=== PATIENT | male | born 1990 | race African-American/Black ===

== ENCOUNTER → 2022-06-03 | Outpatient (REF) | payer SELFPAY ==
[2022-06-03 10:42] LABS: SEMEN APPEARANCE OPAQUE (OPAQUE); SEMEN VISCOSITY LIQUID (LIQUID); SEMEN VOLUME 1.5 ml (2.0-5.0); SPERM CONCENTRATION 54.7 M/ml (>=15.0); WBC CONCENTRATION <=1 M/ml (<=1 M/ml)
== END ==
LOC: M LAB REF 10:10
PROVIDERS: ATTEND Family Medicine
DX: N46.9 Male infertility, unspecified (principal)

== ENCOUNTER 2023-01-28 16:21 | Emergency (ER) | payer OTHER, SELFPAY ==
[~2023-01-28] VITALS: Ht 182.9 cm; Wt 124.4 kg
[2023-01-28] MEDS ORDERED: MORPHINE 4 MG/ML 1ML VIAL IV ONE (17:10)
[2023-01-28] MEDS ORDERED: ONDANSETRON 4MG 2ML VIAL IV ONE (17:10)
[2023-01-28 17:11] LABS: BASO # 0.1 10^3/uL (0.0-0.2); BASO % 1.3 % (0.0-1.0); EOS # 0.2 10^3/uL (0.0-0.5); EOS % 4.9 % (0.0-3.0); HEMOGLOBIN 13.1 g/dl (13.5-17.5); LYMPH # 1.7 10^3/uL (1.5-5.0); LYMPH % 43.8 % (24.0-44.0); MEAN CORPUSCULAR HGB CONC 32.8 g/dl (32.0-36.5); MEAN CORPUSCULAR VOLUME 91.7 fl (80.0-96.0); MONO # 0.3 10^3/uL (0.0-0.8); MONO % 8.6 % (2.0-8.0); NEUTROPHILS # 1.6 10^3/uL (1.5-8.5); NEUTROPHILS % 41.1 % (36.0-66.0); PLATELET COUNT, AUTOMATED 216 10^3/uL (150-450); RED BLOOD COUNT 4.36 10^6/uL (4.30-6.10); WHITE BLOOD COUNT 3.8 10^3/uL (4.0-10.0)
[2023-01-28 17:24] LABS: CK-MB VALUE MASS 1.2 NG/ML (<3.6)
[2023-01-28 17:26] LABS: CPK CREATINE PHOSPHOKINASE 283 U/L (46-171); MB/CK RELATIVE INDEX 0.42 (< OR =4)
[2023-01-28 17:28] LABS: FREE T4 0.89 NG/DL (0.89-1.76); THYROID STIMULATING HORMONE 2.934 uIU/ML (0.55-4.78)
[2023-01-28 17:31] LABS: LIPASE 32 U/L (12-53)
[2023-01-28 17:33] LABS: ALBUMIN 3.8 G/DL (3.2-5.2); ALKALINE PHOSPHATASE 59 U/L (46-116); ALT/SGPT 31 U/L (7.0-40); AST/SGOT 31 U/L (<34); BILIRUBIN,DIRECT 0.2 MG/DL (<0.4); BILIRUBIN,TOTAL 0.6 MG/DL (0.3-1.2); BLOOD UREA NITROGEN 13 MG/DL (9-23); CALCIUM LEVEL 9.3 MG/DL (8.5-10.1); CARBON DIOXIDE LEVEL 30 MMOL/L (20-31); CHLORIDE LEVEL 106 MMOL/L (98-107); CREATININE FOR GFR 1.01 MG/DL (0.70-1.30); GLOMERULAR FILTRATION RATE > 60.0 (>60); GLUCOSE, FASTING 94 MG/DL (60-100); POTASSIUM SERUM 4.1 MMOL/L (3.5-5.1); SODIUM LEVEL 142 MMOL/L (136-145); TOTAL PROTEIN 6.8 G/DL (5.7-8.2)
[2023-01-28] MEDS ORDERED: ISOVUE-370 76% 100ML VIAL As Ordered ONE (17:38)
[2023-01-28 18:09] LABS: RSV AMPLIFICATION NEGATIVE (NEGATIVE)
[2023-01-28 18:33] LABS: CK-MB VALUE MASS 1.1 NG/ML (<3.6)
[2023-01-28 18:35] LABS: MB/CK RELATIVE INDEX 0.4 (< OR =4)
[2023-01-28] MEDS ORDERED: OMEP40CA4 PO (18:53)
[2023-01-28 19:01] VITALS: BP 127/59; TEMP 96.9; O2SAT 99
== END 2023-01-28 19:02 | disposition home or self-care (01) ==
LOC: M ED 16:21
DX: R07.9 Chest pain, unspecified (principal)
CPT/HCPCS: 71045; 71275; 74177; 80048; 80076; 81001; 82550; 82553; 83690; 84439; 84443; 84484; 85025; 87631; 93005; 96374; 99284; J2405; Q9967